=== PATIENT | female | born 1985 | race Caucasian/White ===

== ENCOUNTER 2017-01-27 15:52 | Inpatient (IN) | payer OTHER ==
[~2017-01-27] VITALS: Ht 154.9 cm; Wt 100.0 kg
[2017-01-27] MEDS ORDERED: LACTATED RINGER'S 1,000 ML IV SCH (16:25)
[2017-01-27] MEDS ORDERED: CARBOPROST 250 MCG INJ IM PRN (16:30)
[2017-01-27] MEDS ORDERED: CEFAZOLIN 2 GM/50 ML (PMX) 50 ML IV SCH (16:30)
[2017-01-27] MEDS ORDERED: OXYTOCIN 30 UNITS/LR 500 ML IV PRN (16:30)
[2017-01-27] MEDS ORDERED: OXYTOCIN 30 UNITS/LR 500 ML IV SCH (16:30)
[2017-01-27] MEDS ORDERED: METHYLERGONOVINE 0.2 MG INJ IM PRN (16:30)
[2017-01-27] MEDS ORDERED: MISOPROSTOL 200 MCG TAB PR PRN ×2 (16:30→19:00)
[2017-01-27 17:13] LABS: BASOPHILS % 0.4 % (0.0-2.0); EOSINOPHILS # 0.1 10^3/ul (0.0-0.5); EOSINOPHILS % 0.7 % (0.0-7.0); HEMATOCRIT 34.6 % (37.0-47.0); HEMOGLOBIN 12.1 g/dl (12.0-16.0); LYMPHOCYTES # 1.4 10^3/ul (0.8-2.9); LYMPHOCYTES % 19.2 % (15.0-51.0); MEAN CORPUSCULAR HEMOGLOBIN 30.6 pg (29.0-33.0); MEAN CORPUSCULAR VOLUME 87.6 fl (82.0-101.0); MEAN PLATELET VOLUME 10.9 fl (7.4-10.4); MONOCYTE # 0.4 10^3/ul (0.3-0.9); MONOCYTES % 5.4 % (0.0-11.0); NEUTROPHILS % 73.8 % (39.0-77.0); PLATELET COUNT 202 10^3/UL (140-415); RED BLOOD COUNT 3.95 10^6/ul (4.20-5.40); WHITE BLOOD COUNT 7.3 10^3/ul (4.8-10.8)
[2017-01-27 17:33] LABS: INR 0.92; PROTIME 12.4 Sec (12.2-14.2)
[2017-01-27] MEDS ORDERED: LACTATED RINGER'S 1,000 ML IV ONE (17:33)
[2017-01-27 17:34] LABS: PARTIAL THROMBOPLASTIN TIME 28.7 Sec (25.0-35.0)
[2017-01-27] MEDS ORDERED: CITRIC ACID/NA CITRATE 30 ML CUP PO ONE (18:00)
[2017-01-27] MEDS ORDERED: ONDANSETRON 4 MG INJ IV ONE (18:00)
[2017-01-27] MEDS ORDERED: FENTAnyl 50 MCG/ML VIAL ONE (18:23)
[2017-01-27] MEDS ORDERED: morphine SULFATE/PF (10 MG/10 ML) INJ ONE (18:23)
--- NOTE | 2017-01-27 18:31 | HP ---
Date/Time of Note Date/Time of Note DATE: 01/27/17 TIME: 18:25 OB - History Hx of Present Free Text/Dictation HISTORY OF PRESENT ILLNESS: 31 YO with IUP at 38.4 weeks with Breech presentation, who desires to have repeat delivery and Permanent sterilization. I discussed with the patient the risks, benefits, indications, and alternatives of procedure including but not limited to risks of infection, bleeding, damage to other organs, bowel, bladder, hernia formation, scar formation, possibility of blood transfusion, possible need for emergency hysterectomy, as well as the fact that tubal ligation may fail and there is 1 to 2% risk of failure over lifetime of tubal ligations and the fact that tubal ligation is permanent and irreversible. She was allowed to ask questions. All her questions were answered. Informed consent has been obtained. Her is complicated with DM and chronic hypertension, anemia and asthma and marginal cord insertion Care: Good Care Ultrasounds: Normal mid trimester US Obstetrical Complications: None, Other ( DM and chronic hypertension, anemia and asthma and marginal cord insertion) Medical Complications: Other ( DM and chronic hypertension, anemia and asthma) Past Family/Social History * Past Medical, Surgical, Family and Obstetric Histories reviewed from chart. OB Admission Exam Physical Exam HEENT: WNL Heart: Rhythm Normal Lungs: Clear, Equal Abdomen: WNL Extremities: Normal Reflexes: Normal Last 72 hours Lab Results CBC & BMP 01/27/17 16:59 OB Assessment/Plan Other Assessment: Breech Hypertension DM more elevated BPs in the last 2 days Desires BTL Other plan: c/s and BTL CHANCE PARISH MD Jan 27, 2017 18:31
[2017-01-27] MEDS ORDERED: METOCLOPRAMIDE 10 MG INJ ONE (18:37)
[2017-01-27] MEDS ORDERED: CEFAZOLIN 1 GM INJ ONE (18:40)
[2017-01-27] MEDS ORDERED: NA PHOSPHATE/BIPHOS 133 ML ENEMA PR PRN (19:00)
[2017-01-27] MEDS ORDERED: OXYCODONE/ACETAMINOPHEN (5/325) TAB PO PRN (19:00)
[2017-01-27] MEDS ORDERED: LANOLIN 7 GM TUBE TOP PRN (19:00)
--- NOTE | 2017-01-27 19:29 | OPR ---
Date/Time of Note Date/Time of Note DATE: 01/27/17 TIME: 19:26 Operative Report Free Text/Dictation DATE OF OPERATION: PREOPERATIVE DIAGNOSES: 1. Term with diabetes and hypertension 2. Breech 3. Desires permanent sterilization POSTOPERATIVE DIAGNOSES: 1. Same OPERATION PERFORMED: Primary delivery Bilateral distal salpingectomy SURGEON: Rios Vitale MD BEAUTY COUNSELOR: Amy Mendiola MD ESTIMATED BLOOD LOSS: 700 mL. COMPLICATIONS: None. The risks, benefits, indications, alternatives of procedure including, but not limited to risk of infection, bleeding, damage to other organs, bowel, bladder, hernia formation, scar formation, possibility of blood transfusions, the risks of tubal ligation such as failure and future pregnancies were discussed with the patient. The fact that BTL is permanent and irreversible also discussed with patient. She was allowed to ask questions. All her questions were answered. Informed consent was obtained. DESCRIPTION OF PROCEDURE: She was taken to the operating room. Spinal anesthesia was induced. She was prepped and draped in the usual sterile fashion. Surgical time out one. Anesthesia was tested to be adequate. With permission from anesthesiologist, a knife was used to make a Pfannenstiel skin incision. The incision was taken down in layers. The fascia was cut, undermined and from the underlying muscle using sharp and blunt dissection. All the bleeders were cauterized. Peritoneum was entered bluntly. A low transverse incision was developed over the uterus. Amniotic fluid was clear and adequate. A viable infant in breech presentation was delivered without any difficulty. The cord was clamped and cut, handed to awaiting team. Placenta was then delivered. Uterus was exteriorized, wrapped around a moist lap. Inside uterus was cleaned using a dry lap. All residual membranes were removed. The uterine incision was then closed using #1 Monocryl in 2 layers. A 5 cm distal end of the right tube was ligated 3 times using 0 plain tie and the ligated portion was cut, sent to pathology. Same procedure was done on the contralateral side. The uterus was inserted back inside the abdominal cavity. Irrigation was done carefully. Careful evaluation of the uterine incision revealed no further bleeding. The tubal ligation sites were evaluated carefully. There was no bleeding. The peritoneum and rectus muscles and fascia were evaluated. All bleeders cauterized. Peritoneum was closed using 2-0 Monocryl. At this time, the count was correct. Rectus fascia was reapproximated using 2-0 Monocryl. Rectus fascia was closed using #1 Vicryl. Subcutaneous tissue was cleaned and irrigated. All bleeders cauterized and the skin closed using 4-0 Monocryl. All counts correct. Pt Condition Post Procedure: stable Disposition: PACU RIOS VITALE MD Jan 27, 2017 19:29
[2017-01-27] MEDS ORDERED: TRIMETHOBENZAMIDE 100 MG/ML VIAL IM PRN (19:30)
[2017-01-27] MEDS ORDERED: NALBUPHINE HCL (10 MG/1 ML) INJ IV PRN (19:30)
[2017-01-27] MEDS ORDERED: ONDANSETRON 4 MG INJ IV PRN (19:30)
[2017-01-27] MEDS ORDERED: NALOXONE (0.4 MG/ML) INJ IV PRN (19:30)
[2017-01-27] MEDS ORDERED: HYDROmorphONE 1 MG/ML SYG IV PRN (19:30)
[2017-01-27] MEDS ORDERED: DIPHENHYDRAMINE 50 MG INJ IV PRN (19:30)
[2017-01-27] MEDS: HYDROmorphONE 1 MG/ML SYG IV PRN (20:52)
[2017-01-27 21:00] VITALS: Ht 154.9 cm; Wt 100.0 kg
[2017-01-27] MEDS: SENNA/DOCUSATE NA (8.6MG/50MG) TAB PO SCH (21:00)
[2017-01-27] MEDS: KETOROLAC 30 MG INJ IV PRN (21:24)
[2017-01-27 22:25] VITALS: BP 143/78; PULSE 68; RESP 19
[2017-01-27 23:30] VITALS: BP 131/67; PULSE 67; RESP 18
[2017-01-28] MEDS: LACTATED RINGER'S 1,000 ML IV SCH ×4 (01:15→18:32)
[2017-01-28 03:41] VITALS: BP 118/62; PULSE 80; RESP 18
[2017-01-28] MEDS: HYDROmorphONE 1 MG/ML SYG IV PRN (03:41)
--- NOTE | 2017-01-28 07:33 | QN ---
Documentation Comment s/p c/s Subjective: no complaint Objective: Afebrile, VSS NAD A&O Abdomen: soft, appropriate tender Incision: no sign of bleeding/infection mild lochia Extremity: 1+ edema bilaterally Assessment: S/p C/S Recovering Well Plan: current care CHANCE PARISH MD Jan 28, 2017 07:33
[2017-01-28] MEDS: KETOROLAC 30 MG INJ IV PRN ×3 (07:50→18:15)
[2017-01-28 08:10] VITALS: BP 113/63; RESP 20
[2017-01-28 09:07] LABS: BASOPHILS % 0.3 % (0.0-2.0); EOSINOPHILS # 0.1 10^3/ul (0.0-0.5); EOSINOPHILS % 1.3 % (0.0-7.0); HEMOGLOBIN 10.5 g/dl (12.0-16.0); LYMPHOCYTES # 1.1 10^3/ul (0.8-2.9); LYMPHOCYTES % 18.4 % (15.0-51.0); MEAN CORPUSCULAR HEMOGLOBIN 31.2 pg (29.0-33.0); MEAN PLATELET VOLUME 11.2 fl (7.4-10.4); MONOCYTE # 0.4 10^3/ul (0.3-0.9); MONOCYTES % 7.2 % (0.0-11.0); NEUTROPHILS % 72.3 % (39.0-77.0); PLATELET COUNT 160 10^3/UL (140-415); RED BLOOD COUNT 3.37 10^6/ul (4.20-5.40); RED CELL DISTRIBUTION WIDTH 13.1 % (11.5-14.5); WHITE BLOOD COUNT 6.1 10^3/ul (4.8-10.8)
[2017-01-28] MEDS: SENNA/DOCUSATE NA (8.6MG/50MG) TAB PO SCH ×2 (10:05→22:13)
[2017-01-28] MEDS: LEVOTHYROXINE 75 MCG TAB PO SCH (10:10)
[2017-01-28 15:53] VITALS: BP 118/58; PULSE 75; RESP 19
[2017-01-28 21:00] VITALS: BP 141/89; PULSE 78; RESP 20
[2017-01-28] MEDS: OXYCODONE/ACETAMINOPHEN (5/325) TAB PO PRN (22:14)
[2017-01-29] MEDS: IBUPROFEN 600 MG TAB PO SCH ×5 (00:14→23:42)
[2017-01-29] MEDS: LACTATED RINGER'S 1,000 ML IV SCH ×3 (02:32→18:32)
[2017-01-29] MEDS: OXYCODONE/ACETAMINOPHEN (5/325) TAB PO PRN ×4 (03:12→22:13)
[2017-01-29 04:00] VITALS: BP 129/70; PULSE 72; RESP 20
[2017-01-29] MEDS: LEVOTHYROXINE 75 MCG TAB PO SCH (05:57)
[2017-01-29 08:00] VITALS: BP 121/67; PULSE 68; RESP 17
[2017-01-29] MEDS: SENNA/DOCUSATE NA (8.6MG/50MG) TAB PO SCH ×2 (09:39→22:13)
--- NOTE | 2017-01-29 12:06 | QN ---
Documentation Comment 01/29/17 POD#2 is stable afebrile No Vb +BM +voids Vs Stable Gen NAD Abd soft NT ND Incision ntact Genitalia No blood at perinium --->discharge plan tomorrow -->ambulation BROOKS TILLMAN M.D. Jan 29, 2017 12:06
[2017-01-29 16:03] VITALS: BP 134/72; PULSE 68; RESP 16
[2017-01-29 20:00] VITALS: BP 125/64; PULSE 78; RESP 20
[2017-01-30] MEDS: LACTATED RINGER'S 1,000 ML IV SCH (02:32)
[2017-01-30 03:43] VITALS: BP 121/62; PULSE 74; RESP 20
[2017-01-30] MEDS: IBUPROFEN 600 MG TAB PO SCH ×2 (05:31→12:39)
[2017-01-30] MEDS: LEVOTHYROXINE 75 MCG TAB PO SCH (05:31)
[2017-01-30 08:00] VITALS: BP 127/71; PULSE 70; RESP 16
[2017-01-30] MEDS ORDERED: MEASLES,MUMPS,RUBELLA VACCINE INJ SC* ONE (09:00)
[2017-01-30] MEDS ORDERED: DIPHTH/TET/ACEL PERTUSS (ADULT) 0.5 ML VIAL IM* ONE (09:00)
[2017-01-30] MEDS: OXYCODONE/ACETAMINOPHEN (5/325) TAB PO PRN (09:17)
[2017-01-30] MEDS: SENNA/DOCUSATE NA (8.6MG/50MG) TAB PO SCH (09:17)
--- NOTE | 2017-01-30 14:24 | PD.PPDC ---
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 Patient Condition: Good Diet Diet: Resume Regular Diet Activity/Restrictions Activity: Bedrest May be up to bathroom May be up for meals May Shower Restrictions: No Exercising No Lifting No Driving Minimize Walking Minimize Stair-climbing No Sexual Activity Nothing in the Vagina No [place] No Tampons, douche Wound/Drain Care Instructions Wound/Drain Care Instructions: Keep clean and dry Follow-up Follow-up with Physician: 2, Week/Weeks Return to clinic for [employer]IVER Instructions: Fever greater than 101 Chills Worsening abdominal pain Excessive Vaginal Bleeding OB Instructions: Breast Tenderness Depression Surgical Instructions: Incisional Drainage Incisional Redness ALLEN MARTINEZ MD Jan 30, 2017 14:23
--- NOTE | 2017-01-30 14:27 | DS ---
Date/Time of Note Date/Time of Note DATE: 01/30/17 TIME: 14:25 Obstetrical Discharge Record Final Diagnosis Final Diagnosis: Term delivered Other Final Diagnosis BREECH Section Section: Primary Complications Gestational Diabetes Augmentation: No Induction: No Condition on Discharge Physical Assessment Last Vitals: Afebrile, normotensive. Voiding: Yes Bowel Movement: Yes Breast: Filling Fundus: Firm Abdomen and Incision: Clean, dry and intact. Calf Tenderness: No Patient Condition: Good ALLEN MARTINEZ MD Jan 30, 2017 14:27
== END 2017-01-30 16:15 | disposition home or self-care (01) | DRG 765 ==
LOC: L-D 15:56 → PP1 22:27
PROVIDERS: ADMIT Specialist; ATTEND Specialist
PROC: 0UL70ZZ Occlusion of Bilateral Fallopian Tubes, Open Approach (ICD-10-PCS; 2017-01-27)
PROC: 10D00Z1 Extraction of Products of Conception, Low, Open Approach (ICD-10-PCS; principal; 2017-01-27 18:00)
DX: O24.12 Pre-existing type 2 diabetes mellitus, in childbirth (principal); Z68.41 Body mass index [BMI] 40.0-44.9, adult; E11.9 Type 2 diabetes mellitus without complications; O32.1XX0 Maternal care for breech presentation, not applicable or unspecified; O16.4 Unspecified maternal hypertension, complicating childbirth; O99.214 Obesity complicating childbirth; E66.01 Morbid (severe) obesity due to excess calories; O99.284 Endocrine, nutritional and metabolic diseases complicating childbirth; E03.9 Hypothyroidism, unspecified; O99.02 Anemia complicating childbirth; Z30.2 Encounter for sterilization; Z3A.38 38 weeks gestation of pregnancy; Z37.0 Single live birth
CPT/HCPCS: 82947; 82962; 85025; 85610; 85730; 86592; 86850; 86900; 86901; 87340; 88302; 90715; 94760; 99464; J0690; J1170; J1885; J2274; J2405; J2590; J2765; J3010; J7120